=== PATIENT | female | born 1945 | race Caucasian/White ===

== ENCOUNTER → 2018-11-10 11:44 | Outpatient (CLI) | payer OTHER, SELFPAY ==
--- NOTE | 2018-11-10 | DI.MRI.S_ITS ---
PROCEDURE: MR KNEE LT WO CON INDICATIONS: UNILATERAL PRIMARY OSTEOARTHRITIS OF LEFT KNEE TECHNIQUE: Noncontrast sagittal PD fast spin echo and T2 fast spin echo with fat saturation, sagittal 3-D FLASH with fat saturation; coronal T1 spin echo and PD fast spin echo with fat saturation, and axial PD fast spin echo with fat saturation through the knee. COMPARISON: None. FINDINGS: Image quality: Excellent. Menisci: Lateral meniscus appears intact. Complex tear involving the posterior root, posterior horn and body of the medial meniscus, with partial extrusion. Cruciate ligaments: The anterior and posterior cruciate ligaments appear intact. Medial structures: The medial collateral ligament appears intact. The posterior oblique ligament, semimembranosus tendon insertions, oblique popliteal ligament, and meniscocapsular junction appear intact. Visualized portions of the pes anserinus tendons appear normal. No abnormal bursal fluid. Lateral structures: Age-indeterminate, mild proximal sprain of the lateral collateral ligament. The long and short heads of the biceps femoris tendon appear intact. The popliteus tendon appears normal; the popliteofibular ligament appears intact. The posterosuperior and anteroinferior popliteomeniscal fascicles appear intact. The arcuate and fabellofibular ligaments appear intact, on either side of the lateral inferior geniculate artery. Iliotibial band appears normal. Anterior structures: The quadriceps and patellar tendons appear intact. Patellar alignment is normal. No femoral trochlear dysplasia or ventral trochlear prominence. No edema in the infrapatellar fat pad. Bones and cartilage: No bone marrow contusions or fractures. Within the medial compartment, diffuse partial-thickness loss of femoral and tibial cartilage without focal defect. Partial-thickness loss of the posterior cartilage is seen on axial images, for example image 17 series 6 also noted. Within the lateral compartment, diffuse surface fraying of the femoral and tibial cartilage without focal defect. Within the patellofemoral compartment, partial-thickness loss surface fraying of the cartilage overlying the median patellar ridge and the central femoral trochlea. Joint space: Moderate joint effusion. Small Adam's cyst measuring 3 cm in a cephalocaudad dimension. 5 mm ununited osteophyte versus loose body seen in the anterior intercondylar notch image 30 series 7 IMPRESSION: Complex circumferential tear involving the posterior root, posterior horn and body of medial meniscus with partial extrusion. Tricompartmental joint degeneration. Small Adam's cyst. Moderate joint effusion. Probable 5 mm loose body (versus ununited osteophyte) within the anterior intercondylar notch. Dictated by: Forest Gomes M.D. on 11/10/2018 at 13:54 Approved by: Forest Gomes M.D. on 11/10/2018 at 14:05
== END ==
PROVIDERS: Visit Provider Orthopaedic Surgery
DX: S83.232A Complex tear of medial meniscus, current injury, left knee, initial encounter (principal); M17.12 Unilateral primary osteoarthritis, left knee; M71.22 Synovial cyst of popliteal space [Baker], left knee; M25.462 Effusion, left knee
CPT/HCPCS: 73721

== ENCOUNTER 2019-04-07 08:28 | Inpatient (IN) | payer OTHER, SELFPAY ==
[2019-03-25 12:48] VITALS: BMI 36.6
[2019-04-07] VITALS (17 sets, daily range): BP systolic 86–148; BP diastolic 52–88; PULSE 65–86; RESP 7–18; TEMP 36.1–36.8; O2SAT 85–100; BMI 36.6
--- NOTE | 2019-04-07 06:00 | DI.RAD.S_ITS ---
PROCEDURE: XR KNEE LT 1TO2V INDICATIONS: prosthesis placement TECHNIQUE: 2 views of the knee acquired. COMPARISON: [facility] [place], CR, XR KNEE ARTHRITIC SERIES LT, 12/22/2018, 13:18. FINDINGS: Bones: Patient is status post knee joint arthroplasty. Hardware components are in expected positions with near-anatomic alignment. Visualized bony structures are intact. Soft tissues: Overlying postoperative changes are noted including a joint effusion with soft tissue and joint space gas. IMPRESSION: 1. Expected postsurgical changes status post left knee arthroplasty. Dictated by: Arie Huynh M.D. on 04/07/2019 at 15:05 Approved by: Arie Huynh M.D. on 04/07/2019 at 15:06
[2019-04-07] MEDS: LACTATED RINGERS 1,000 ML 42 ML IV ×2 (09:27→12:36)
[2019-04-07] MEDS: ACETAMINOPHEN 325 MG TABLET 975 MG PO ×3 (09:27→20:47)
[2019-04-07] MEDS: PREGABALIN 75 MG CAPSULE PO (09:28)
[2019-04-07] MEDS: VANCOMYCIN 1,000 MG/200 ML FROZ.PIGGY 200 MG IV ×2 (10:02→20:59)
[2019-04-07] MEDS: GENTAMICIN 120 MG in SODIUM CHLORIDE 0.9% 100 ML 103 ML IV (11:07)
--- NOTE | 2019-04-07 11:20 | PM.PREOP ---
Pre-operative Note Interval Note History & Physical reviewed/Exam performed by Physician: Yes Changes to H&P: No
--- NOTE | 2019-04-07 11:23 | P.OP_ITS ---
Operative Date/Time/Diagnoses Date of procedure: 04/07/19 Time of procedure: 11:59 Pre-op diagnosis: left knee OA Post-op diagnosis: same Procedure & Clinicians Procedure: Left total knee arthroplasty Same procedure as scheduled: Yes Indications: The patient has had progressively worsening left knee pain with radiographic changes consistent with arthritis. Non-operative management has failed and the patient has requested total knee replacement. The risks, benefits and alternatives to surgery were discussed with the patient prior to proceeding. Risks discussed included, but were not limited to, failure to relieve pain, stiffness, infection, nerve damage, deep venous thrombosis, pulmonary embolism, stroke, coma, heart attack, permanent paralysis and , as well as the potential need for eventual revision of the prosthetic. Surgeon: Marimar Wong Tool Worker: Gregoria Markham Anesthesia Type: General and Spinal Operative Notes Findings: Severe left knee arthritis, adequate stability Closure Type: primary Specimen(s): none sent Prosthetic devices, grafts, tissues, transplants, or devices: Journey BCS 2 size 5 femur, size 4 tibia, +10 poly, patella 32 by 9mm Applied: drain(s) Estimated Blood Loss (mL): 250 Blood products transfused: none Tourniquet time (min): 79 Procedure in detail: The patient was seen in the pre-operative area, where the patient identified the left knee as the operative site and this was marked with my initials. The patient received pre-operative antibiotics, and was taken to the operating room and placed on the operative table in the supine position. After satisfactory anesthesia, a multimedia services manager out was performed. The left leg was encircled with a tourniquet about the proximal thigh, and the leg was prepared from the toes to the tourniquet with ChloroPrep in the usual fashion and draped through sterile drapes. The leg was elevated and exsanguinated with Eschmark bandage and the tourniquet inflated to [250] mmHg pressure. The knee was approached through an approximately 18 cm incision centered over the patella and carried into the knee through a medial parapatellar arthrotomy. A portion of the medial and lateral meniscus was resected. Soft tissue was carefully mobilized around the patella the patella was measured with a caliper. Bone was resected from the patella and the patellar height was reconstituted with up an appropriate sized patellar component. A cover was then placed on the patella. A small amount of additional medial and lateral meniscus was resected. The visionare guide fit well to the distal femur. It looked like an appropriate distal femoral cut and the cut was made without difficulty. The rotation was assessed and the appropriate size femoral guide was placed on the distal femur and finishing cuts were made. There was no evidence of notching. There was some popliteal tendon fraying. The anterior, posterior and chamfer cuts were then made. The posterior osteophytes and soft tissues were then removed. The posterior capsule was injected with part of a mixture of 60 ml 0.25% Marcaine mixed with 20 ml Exparel for post operative pain control. The remainder of this mixture was injected into the capsule and subcutaneous tissues during cement curing. The tibia was prepared and the visionaire guide fit well to the distal tibia. The rotation was assessed. The patient was placed in extension residual medial and lateral meniscus as well as any residual bone was carefully resected. [No] additional tibia was resected. Hemostasis was achieved especially posteriorly. Additional local was injected into the posterior capsule. The extension gap was assessed and additional releases for gap balancing were performed as necessary. It was checked with the gap pediatric critical care nurse. The femoral component was trial was placed and the notch was finished. Trial tibial and femoral components were then placed and the knee placed through a range of motion. Range of motion was [0-130], with good stability throughout the range. The trials were then removed, and the tibia was finished. The bone was prepared with pulsatile lavage, and dried with a sponge. Cement was applied and the final prosthetics placed. Excess cement was removed during and after cement curing. A brief Betadine soak was performed. After confirming there was no extruded cement posteriorly, the final tibial insert was placed. The knee was copiously irrigated and the tourniquet deflated. Hemostasis was obtained with the Bovie. A drain was placed and brought out superolaterally. The capsule was closed with interrupted Vicryl suture. The subcutaneous layer was closed with barbed sutures, and the skin with a running 3-0 V-Lock suture and Surgical glue. An Aquacel Ag dressing was applied and the patient was taken to recovery having tolerated the procedure well. Complications: none Condition: stable Disposition: Acute Care Plan for aftercare: The patient will be maintained on a standard total knee replacement protocol with weight bearing as tolerated. The patient will receive Lovenox and sequential compression devices for DVT prophylaxis. The patient will be discharged home when safe for the home environment.
--- NOTE | 2019-04-07 12:19 | SUR.OPER ---
Supine on padded OR bed. Pillow under head, arms secured on padded armboards <90 degree abduction. Safety belt across torso. Non-operative leg secured with tape over blanket over lower leg. Operative leg secured in DeMayo/Yadiel positioner. Foam padded brace at thigh of operative leg.
[2019-04-07] MEDS: BUPIVACAINE 0.25% W/ EPI 30 ML VIAL 60 ML INJ (12:34)
[2019-04-07] MEDS: TRANEXAMIC ACID 1,000 MG VIAL 1000 MG INJ ×2 (12:35→13:29)
[2019-04-07] MEDS: BUPIVACAINE LIPOSOME 266 MG/20 ML VIAL INJ (12:35)
[2019-04-07] MEDS: HYDROMORPHONE 2 MG INJ 0.5 MG IV ×2 (14:53→15:09)
[2019-04-07] MEDS: LACTATED RINGERS 1,000 ML 125 ML IV (15:50)
[2019-04-07] MEDS: PARoxetine 10 MG TABLET 30 MG PO (16:41)
[2019-04-07] MEDS: OXYCODONE IR 5 MG TABLET PO ×2 (18:31→21:00)
[2019-04-07] MEDS: PANTOPRAZOLE 40 MG TABLET PO (20:47)
[2019-04-07] MEDS: FLUTICASONE 120 SPRAY/16 GM SPRAY.SUSP NASAL (20:47)
[2019-04-07] MEDS: clonazePAM 0.5 MG TABLET 2 MG PO (20:47)
[2019-04-07] MEDS: DOCUSATE 100 MG CAPSULE PO (20:47)
--- NOTE | 2019-04-07 23:31 | PC.NURSE ---
1530- Pt arrived to room 222 from PACU via bed. A/O x3, 95% 1.5L nc, LS clear denies SOB, reports Hx Asthma. Left knee aquacell/tom wrap CDI, HV site tegaderm CDI, 180mL output this shift. 1PA FWW BSC to vooid a total of 1900mL clear yellow urine this shift plus one saturated claribel pad. BT+ denies nausea, tolerated reg dinner. R wrist LR @ 125 + Vanco. calf SCD's on. Bed alarm on for safety.
[2019-04-08] MEDS: LACTATED RINGERS 1,000 ML 125 ML IV (01:45)
[2019-04-08] MEDS: OXYCODONE IR 5 MG TABLET PO ×5 (04:01→22:39)
[2019-04-08 04:10] VITALS: BP 120/67; PULSE 72; RESP 18; TEMP 36.7; O2SAT 97
[2019-04-08 05:45] LABS: Hematocrit 36.9 % (36-46); Hemoglobin 12.3 g/dL (12.0-16.0)
[2019-04-08] MEDS: PANTOPRAZOLE 40 MG TABLET PO ×2 (06:08→20:01)
[2019-04-08 08:23] VITALS: BP 109/64; PULSE 71; RESP 18; TEMP 36.4; O2SAT 93
[2019-04-08] MEDS: ACETAMINOPHEN 325 MG TABLET 975 MG PO ×3 (08:31→20:01)
[2019-04-08] MEDS: ENOXAPARIN 40 MG/0.4 ML SYRINGE SUBCUT (08:34)
[2019-04-08] MEDS: DOCUSATE 100 MG CAPSULE PO ×2 (08:34→20:02)
[2019-04-08] MEDS: VENLAFAXINE ER 75 MG CAP 150 MG PO (08:35)
[2019-04-08] MEDS: FLUTICASONE 120 SPRAY/16 GM SPRAY.SUSP NASAL (08:36)
--- NOTE | 2019-04-08 08:51 | PM.PNPO.1 ---
Subjective Date Patient Seen: 04/08/19 Time Patient Seen: 08:51 Interval history: Patient's pain is moderate to severe. Denies fever chills. No nausea vomiting. She was able to use the bedside commode. Has not yet worked with physical therapy. Exam Vital Signs (past 8 hours): - 04/08/19 04:10 04/08/19 08:23 Temperature 98.1 F 97.6 F Pulse Rate 72 71 Respiratory Rate 18 18 Blood Pressure 120/67 109/64 Pulse Oximetry 97 93 Oxygen Delivery Method Nasal Cannula Oxygen Flow Rate 1 Narrative Exam Narrative: 73-year-old female resting comfortably in bed in no apparent distress. Left knee dressing is clean, dry and intact. Hemovac is in place. Motor functions intact distally. Sensation grossly intact to light touch. Left leg is warm and dry. Objective Labs Result Diagrams: 04/08/19 05:21 Labs: Laboratory Results - last 24 hr 04/08/19 05:21 Hgb 12.3 Hct 36.9 Assessment & Plan Post-op Postoperative Procedures Operation Date: 04/07/19 10:45 Actual Procedures Side Surgeon p Total Knee Arthroplasty Left Marimar Wong MD Patient progressing as expected. Continue work on pain control today. Mobilize with physical therapy. Weightbearing as tolerated. Likely DC home tomorrow.
--- NOTE | 2019-04-08 09:20 | CM.DANOTE ---
DCP: Case received, EMR reviewed and met with patient. Introduced self and role. History and information obtained from patient regarding her baseline health and functions. DCP template assessment completed with information currently available. Patient is a 73 year old female who admitted yesterday morning to the care of the surgical team. Payer: confirmed: [employer]. Patient came to hospital for surgical procedure. She had L. total knee arthroplasty. Patient has history of osteoarthritis. Met with her in her room. Alert and oriented, and in her bed. Confirmed that she resides in [facility] with her , Darryn. She is originally from [place], [place]. She has not yet been up with physical therapy. Patient stated that she uses a cane at home. Stated that her knee has given out at times, resulting in falling. She stated, otherwise, she is pretty independent at home, and only drives for short distances. During conversation with patient, she was having some difficulties getting comfortable. She voiced concerns about having to keep her knee straight, and sitting in the car. P: DCP to follow closely. Will collaborate with physical therapy team to see if she is able to return home with no barriers, or if she will need more assistance. Caity Salazar RN/Air Control/Anti Air Warfare Officer
--- NOTE | 2019-04-08 10:04 | PC.NURSE ---
Pt is particular with care but has allowed staff to do the care with need. She is obsessive with cleanliness and wants all staff to wash their hands numerous times. Which staff has been doing. She was groggy initially when waking up. Ate breakfast. Meds given along with 1 oxycodone which has been effective for pain control. Pt has been getting up with 1 PA to the commode and doing decent. L.knee dressing cdi with aquacel and tom wrap. She denies any numbness or tingling to extremity. Pt is resting comfortably and states that she wants to nap because the iv maching kept her up.
--- NOTE | 2019-04-08 10:20 | PT.IIE ---
Current Diagnoses Unilateral primary osteoarthritis, left knee (04/07/19) Surgery Performed Operation Date: 04/07/19 10:45 Actual Procedures p Total Knee Arthroplasty(Left) - Marimar Wong MD Surgical History (Last Updated 03/25/19 @ 13:21 by Teresita Moore, RN) History of 2 sections (Acute) History of esophagogastroduodenoscopy (EGD) (Acute) History of lumbar laminectomy (Acute ~1969) Hx of appendectomy (Acute) Hx of sinus surgery (Acute) Hx of tonsillectomy (Acute) Hx of tubal ligation (Acute) Medical History (Last Updated 03/25/19 @ 13:21 by Teresita Moore RN) Anxiety (Acute) Arthritis (Acute) Asthma (Acute) Breast cancer, left (Acute ~2010) Bronchitis (Acute) Depression (Acute) GERD (gastroesophageal reflux disease) (Acute) Ganglion cyst of finger (Acute) Hearing impaired (Acute) Left leg swelling (Acute) Osteoarthritis (Acute) Pneumonia (Acute) Pre-diabetes (Acute) [place] teeth removed (Acute) Physical Therapy Inpatient Evaluation/Re-Eval M1 PT/OT-IP Prior Functional Status Start: 04/08/19 12:10 Freq: NEEDED Status: Active Protocol: Document 04/08/19 10:20 AB (Rec: 04/08/19 12:26 AB [id number]) Medical Review Prior Functional Status Medical History Reviewed Yes Communication able to make needs known Mobility and Gait pt stated that she is modified indepedent with all mobilities and ambulation using FWW but occasionally furniture cruises to ambulate in her house Social History Household Members spouse Living Arrangements House Number of Floors (Floors) One Floor Number of Stairs To Enter/Railing? 3 steps to enter with bilateral wide rails and can only hold on to one rail at a time; stated that she uses a cane and PHOTO EDITOR for stair climbing Home Environment Standard Height Toilet Walk in Shower Built-In Shower Seat Home Equipment Front Wheel Walker Straight Cane Hand Held Shower Grab Bars Near Toilet M2 PT-IP Current Condition Start: 04/08/19 12:10 Freq: NEEDED Status: Active Protocol: Document 04/08/19 10:20 AB (Rec: 04/08/19 12:26 AB [id number]) Physical Therapy Current Condition Current Condition Evaluation Date 04/08/19 Treatment Diagnosis s/P L TKA; difficulty in walking Onset Date 04/07/19 Weight Bearing Status Weight Bearing Status Weight Bear as Tolerated M3 PT-IP Subjective Start: 04/08/19 12:10 Freq: NEEDED Status: Active Protocol: Document 04/08/19 10:20 AB (Rec: 04/08/19 12:26 AB [id number]) Subjective Physical Therapy Visit Type Type Initial Evaluation Visit Start Time 10:20 Visit Stop Time 10:53 Total Visit Minutes 33 Number of QLIKVIEW DEVELOPER Visits 0 Physical Therapy Visit Comments Patient Comments pt agreeable to do PT; requested to use the toilet Therapy Pain Assessment Pain When Pain Assessed At Rest Pain Present Pain Present Pain Reported Location Left Knee Intensity 4 Scale Used Numeric (1 - 10) Pain Management Techniques Apply Cold Re-positioning Timing of Activity with Medications M4 PT-IP Mobility and Gait Start: 04/08/19 12:10 Freq: NEEDED Status: Active Protocol: Document 04/08/19 10:20 AB (Rec: 04/08/19 12:26 [id number]) PT-Bed Mobility Assessment Supine to Sit Supine to Sit Standby Assistance Scooting Scooting to Edge of Bed Standby Assistance PT-Transfer Assessment Sit to and From Stand Sit to and from Stand Contact Guard Assistance 1 Person Assistance Use of Upper Extremities Equipment Transfer Assistive Device Gait Belt Front Wheeled Walker Orthotic/Prosthetic Devices or Brace: No Transfers Transfer Destination Toilet Transfer Technique pt ambulated using FWW Transfer Ability Level of Assist Contact Guard Assistance 1 Person Assistance Use of Upper Extremities Comments Mobility Comments pt ambulated to the toilet using FWW ~ 12 ft CGA and cues for techniques and safety. pt was able to maintain standing using FWW for support CGA while managing her brief. pt ambulated from the toilet towards the sink ~ 12 ft using FWW CGA and was able to maintain standing using FWW for support and leaning against the counter CGA while completing handwashing. pt agreed to do more ambulation. Gait Assessment Gait Gait Assistance Required: Contact Guard Assist Distance (Feet) 60 Able to Maintain Weight Bearing Status Yes During Gait Assistive Devices Assistive Device Gait Belt Front Wheeled Walker Orthotic/Prosthetic Devices or Brace: No Gait Deviations General Gait Pattern Antalgic Decreased Stride Length Decreased Feet Clearance Factors Limiting Gait Function Factors Limiting Gait Function Decreased Activity Tolerance Decreased Strength Limited Range of Motion Pain Poor Balance Poor Safety Awareness PT-Balance Assessment Sitting Balance and Reactions Static Sitting Balance Ability Good Dynamic Sitting Balance Ability Good Standing Balance and Reactions Static Standing Balance Ability Fair Dynamic Standing Balance Ability Fair Device Used FWW M5 PT-IP Objective Assessments Start: 04/08/19 12:10 Freq: NEEDED Status: Active Protocol: Document 04/08/19 10:20 AB (Rec: 04/08/19 12:26 AB [id number]) Orientation Orientation/Cognition Level of Alertness Alert Orientation Name Place Situation Safety Awareness Decreased Safety Awareness Gross Range of Motion Lower Extremity ROM Assessment Right Impaired Impairments R knee flexion: ~ 90 deg R knee extension: lacking ~ 5 deg to neurtral Strength Lower Extremity Strength Assessment Left Impaired Knee 4-/5 Coordination Assessment Gross Coordination Gross Coordination WNL Muscle Tone Muscle Tone WNL Yes M6 PT-IP Treatment Start: 04/08/19 12:10 Freq: NEEDED Status: Active Protocol: Document 04/08/19 10:20 AB (Rec: 04/08/19 12:26 AB [id number]) Physical Therapy Treatment Exercises Exercises Heel Slides Education Education Provided Precautions Weight Bearing Status Post-Op Packet Safety M7 PT-IP Assessment and Plan Start: 04/08/19 12:10 Freq: NEEDED Status: Active Protocol: Document 04/08/19 10:20 AB (Rec: 04/08/19 12:26 AB [id number]) PT Summary Assessment and Plan Potential Rehabilitation Potential Good Status of Condition at Evaluation Stable Summary Impairments Pain ROM Strength Balance Coordination Sensation Tone Cognition Bed Mobility Transfers Gait Activity Tolerance Assessment Summary pt requiring one person assist with mobility and will have her spouse assist her at home. stated that her friend, who is also a caregiver can assist her as well if needed. pt stated that she is set up for outpt PT. Goals Bed Mobility Goal Independent Transfer Goal Independent Front Wheeled Walker Gait Goal Independent Front Wheel Walker Gait Distance 200 Other Goals up/down 3 steps 1 rail/SPC SBA Days to Meet Goals 5 Frequency of Treatment Frequency Of Treatment Twice a Day Treatment Plan Physical Therapy Treatment Plan Bed Mobility Training Transfer Training Gait Training Therapeutic Exercise Balance Retraining Post Op Education Discharge Planning Hot or Cold Pack Neuromuscular Re-ed Coordination Retraining Manual Therapy Other Recommendations and Next Treatment ambulation, stair climbing Focus training, caregiver training if appropriate Recommendations To Nursing Amount of Assist Needed 1 Person Assist Discharge Recommendations PT Discharge Recommendations Home with Assistance Outpatient PT
[2019-04-08 11:40] VITALS: PULSE 76; RESP 18; TEMP 36.9; O2SAT 97
--- NOTE | 2019-04-08 12:26 | PC.NURSE ---
Addendum entered by Forest Bassett R.N. 04/08/19 15:27: 1330- Pt c/o pain to l knee. Medicated with PRN oxycodone. Noted O2 sat 84% on RA. Pt denies shortness of breath and RR are even/unlabored rate 15. Applied O2 at 1L NC. Will monitor. Original Note: Rec'd pt sitting up to chair finishing up physical therapy session. Physical therapist reports pt with decreased O2 sat around 90% on RA at which time she placed a NC at 2LPM. Pt is seen sitting up to chair with mildly labored RR 22 and O2 sat 97%. Reassessed pt at noon and found pt to have removed nasal cannula. Checked O2 sat at 97% on RA. Leaving O2 off for now. Pt used IS x5 breaths with fair breath holding ability. Reports hx of asthma but denies symptoms of exacerbation at this time. Lungs are CTAB. Educated pt to use IS 10 xhr while awake. L knee has CDI aquacell dsg with tom wrap cover. Hemovac is compressed with sang drainage noted. Scant sang drainage on proximal portion of tom wrap and claribel drain site. Pt states previously noted left upper leg tingling is resolving and barely noticeable. Call light in reach and safety measure reinforced. Pt verbalizes understanding and agrees to use call light for any needs and will wait for assistance prior to getting OOB.
[2019-04-08 15:59] VITALS: BP 134/65; PULSE 79; RESP 18; TEMP 36.7; O2SAT 95
[2019-04-08] MEDS: PARoxetine 10 MG TABLET 30 MG PO (17:19)
--- NOTE | 2019-04-08 17:19 | PT.IPTN ---
Current Diagnoses Unilateral primary osteoarthritis, left knee (04/07/19) Surgery Performed Operation Date: 04/07/19 10:45 Actual Procedures p Total Knee Arthroplasty(Left) - Marimar Wong MD Physical Therapy Treatment Note M2 PT-IP Current Condition Start: 04/08/19 12:10 Freq: NEEDED Status: Active Protocol: Document 04/08/19 10:20 AB (Rec: 04/08/19 12:26 AB [id number]) Physical Therapy Current Condition Current Condition Evaluation Date 04/08/19 Treatment Diagnosis s/P L TKA; difficulty in walking Onset Date 04/07/19 Weight Bearing Status Weight Bearing Status Weight Bear as Tolerated M3 PT-IP Subjective Start: 04/08/19 12:10 Freq: NEEDED Status: Active Protocol: Document 04/08/19 16:49 LJ (Rec: 04/08/19 17:19 LJ [id number]) Subjective Physical Therapy Visit Type Type Treatment Note Visit Start Time 14:49 Visit Stop Time 17:13 Total Visit Minutes 24 Notes Pt just returned to chair after going to the bathroom. Willing to do exercises in the chair. Waiting for pain meds and not wanting to get up again Therapy Pain Assessment Pain When Pain Assessed At Rest Pain Present Pain Present Pain Reported M4 PT-IP Mobility and Gait Start: 04/08/19 12:10 Freq: NEEDED Status: Active Protocol: Document 04/08/19 10:20 AB (Rec: 04/08/19 12:26 AB [id number]) PT-Bed Mobility Assessment Supine to Sit Supine to Sit Standby Assistance Scooting Scooting to Edge of Bed Standby Assistance PT-Transfer Assessment Sit to and From Stand Sit to and from Stand Contact Guard Assistance 1 Person Assistance Use of Upper Extremities Equipment Transfer Assistive Device Gait Belt Front Wheeled Walker Orthotic/Prosthetic Devices or Brace: No Transfers Transfer Destination Toilet Transfer Technique pt ambulated using FWW Transfer Ability Level of Assist Contact Guard Assistance 1 Person Assistance Use of Upper Extremities Comments Mobility Comments pt ambulated to the toilet using FWW ~ 12 ft CGA and cues for techniques and safety. pt was able to maintain standing using FWW for support CGA while managing her brief. pt ambulated from the toilet towards the sink ~ 12 ft using FWW CGA and was able to maintain standing using FWW for support and leaning against the counter CGA while completing handwashing. pt agreed to do more ambulation. Gait Assessment Gait Gait Assistance Required: Contact Guard Assist Distance (Feet) 60 Able to Maintain Weight Bearing Status Yes During Gait Assistive Devices Assistive Device Gait Belt Front Wheeled Walker Orthotic/Prosthetic Devices or Brace: No Gait Deviations General Gait Pattern Antalgic Decreased Stride Length Decreased Feet Clearance Factors Limiting Gait Function Factors Limiting Gait Function Decreased Activity Tolerance Decreased Strength Limited Range of Motion Pain Poor Balance Poor Safety Awareness PT-Balance Assessment Sitting Balance and Reactions Static Sitting Balance Ability Good Dynamic Sitting Balance Ability Good Standing Balance and Reactions Static Standing Balance Ability Fair Dynamic Standing Balance Ability Fair Device Used FWW M5 PT-IP Objective Assessments Start: 04/08/19 12:10 Freq: NEEDED Status: Active Protocol: Document 04/08/19 10:20 AB (Rec: 04/08/19 12:26 AB [id number]) Orientation Orientation/Cognition Level of Alertness Alert Orientation Name Place Situation Safety Awareness Decreased Safety Awareness Gross Range of Motion Lower Extremity ROM Assessment Right Impaired Impairments R knee flexion: ~ 90 deg R knee extension: lacking ~ 5 deg to neurtral Strength Lower Extremity Strength Assessment Left Impaired Knee 4-/5 Coordination Assessment Gross Coordination Gross Coordination WNL Muscle Tone Muscle Tone WNL Yes M6 PT-IP Treatment Start: 04/08/19 12:10 Freq: NEEDED Status: Active Protocol: Document 04/08/19 16:49 MERARI (Rec: 04/08/19 17:19 LJ [id number]) Physical Therapy Treatment Exercises Exercises Ankle Pumps Gluteal Sets Quad Sets Education Education Provided Safety Other Treatments Other Treatment Performed seated abdominal crunches pelvic tilts M7 PT-IP Assessment and Plan Start: 04/08/19 12:10 Freq: NEEDED Status: Active Protocol: Document 04/08/19 16:49 MERARI (Rec: 04/08/19 17:19 LJ [id number]) PT Summary Assessment and Plan Potential Rehabilitation Potential Good Status of Condition at Evaluation Stable Summary Impairments Pain ROM Strength Balance Coordination Sensation Tone Cognition Bed Mobility Transfers Gait Activity Tolerance Assessment Summary Pt with increased pain waiting for medications to be administered in 15 min. Performed seated exercises for LE and abdominals. Pt aware that she needs to trial stairs prior to d/c home tomorrow. Goals Bed Mobility Goal Independent Transfer Goal Independent Front Wheeled Walker Gait Goal Independent Front Wheel Walker Gait Distance 200 Other Goals up/down 3 steps 1 rail/SPC SBA Days to Meet Goals 5 Frequency of Treatment Frequency Of Treatment Twice a Day Treatment Plan Physical Therapy Treatment Plan Bed Mobility Training Transfer Training Gait Training Therapeutic Exercise Balance Retraining Post Op Education Discharge Planning Hot or Cold Pack Neuromuscular Re-ed Coordination Retraining Manual Therapy Other Recommendations and Next Treatment ambulation, stair climbing Focus training, caregiver training if appropriate Recommendations To Nursing Amount of Assist Needed 1 Person Assist Discharge Recommendations PT Discharge Recommendations Home with Assistance Outpatient PT
[2019-04-08 19:56] VITALS: BP 135/59; PULSE 77; RESP 20; TEMP 36.7
[2019-04-08] MEDS: clonazePAM 0.5 MG TABLET 2 MG PO (20:02)
[2019-04-08 23:15] VITALS: BP 143/61; PULSE 76; RESP 18; TEMP 36.9; O2SAT 94
[2019-04-09] MEDS: OXYCODONE IR 5 MG TABLET PO ×2 (02:14→05:22)
[2019-04-09 03:55] VITALS: BP 147/57; PULSE 76; RESP 18; TEMP 37; O2SAT 93
[2019-04-09] MEDS: PANTOPRAZOLE 40 MG TABLET PO (05:23)
[2019-04-09 09:00] VITALS: BP 147/77; PULSE 80; RESP 16; TEMP 36.3; O2SAT 93
[2019-04-09] MEDS: OXYCODONE IR 10 MG TABLET PO (09:26)
[2019-04-09 10:05] VITALS: O2SAT 92
[2019-04-09 10:06] VITALS: O2SAT 89
--- NOTE | 2019-04-09 10:44 | P.PN_ITS ---
Subjective Date Patient Seen: 04/09/19 Time Patient Seen: 08:42 Interval history: POD 2 s/p L TKA with Dr. Wong. Patient has significant pain control issues. She has been very slow to mobilize. She has not been mobilizing in the [place] yet. Patient has an allergy to ASA, and will have Jens enox for DVT prophylaxis. She is voiding without difficulty. Hemovac drain 80 cc last night. Exam Vital Signs (past 8 hours): - 04/09/19 03:55 04/09/19 09:00 04/09/19 10:05 Temperature 98.6 F 97.3 F L Pulse Rate 76 80 Respiratory Rate 18 16 Blood Pressure 147/57 H 147/77 H Pulse Oximetry 93 93 92 04/09/19 10:06 Temperature Pulse Rate Respiratory Rate Blood Pressure Pulse Oximetry 89 L Oxygen Delivery Method Room Air Oxygen Flow Rate 1 Narrative Exam Narrative: Patient lying in bed in no acute distress. She is alert and oriented x3. Dressing on left knee is CDI. Tk wrap in place. Hemovac drain still in. Calves are soft, compressible, nontender bilaterally. Pulses are symmetrical. She is able to actively dorsiflex plantar flex. Objective Labs Result Diagrams: 04/08/19 05:21 Assessment & Plan Post-op (1) S/P total knee arthroplasty: Postoperative Procedures Operation Date: 04/07/19 10:45 Actual Procedures Side Surgeon p Total Knee Arthroplasty Left Marimar Melanie Wong MD Patient will continue to mobilize with physical therapy today. Will increase patient's oxycodone to 10 mg. She has the option of also trying Vistaril. Continue Lovenox for DVT prophylaxis. Patient will discharge home once mobilizing safely, and pain adequately controlled either tonight or tomorrow morning.
--- NOTE | 2019-04-09 11:00 | PT.IPTN ---
Current Diagnoses Unilateral primary osteoarthritis, left knee (04/07/19) Presence of unspecified artificial knee joint (04/07/19) Surgery Performed Operation Date: 04/07/19 10:45 Actual Procedures p Total Knee Arthroplasty(Left) - Marimar Wong MD Physical Therapy Treatment Note M2 PT-IP Current Condition Start: 04/08/19 12:10 Freq: NEEDED Status: Active Protocol: Document 04/08/19 10:20 AB (Rec: 04/08/19 12:26 AB [id number]) Physical Therapy Current Condition Current Condition Evaluation Date 04/08/19 Treatment Diagnosis s/P L TKA; difficulty in walking Onset Date 04/07/19 Weight Bearing Status Weight Bearing Status Weight Bear as Tolerated M3 PT-IP Subjective Start: 04/08/19 12:10 Freq: NEEDED Status: Active Protocol: Document 04/09/19 11:00 GGD (Rec: 04/09/19 12:11 GGD [id number]) Subjective Physical Therapy Visit Type Type Treatment Note Visit Start Time 10:20 Visit Stop Time 11:00 Total Visit Minutes 40 Number of ANTENNA RIGGER Visits 2 Physical Therapy Visit Comments Patient Comments Pt want's to D/C home. Therapy Pain Assessment Pain When Pain Assessed At Rest Pain Present Pain Present Pain Reported Location Left Knee Intensity 4 Scale Used Numeric (1 - 10) Pain Management Techniques Apply Cold Re-positioning Timing of Activity with Medications M4 PT-IP Mobility and Gait Start: 04/08/19 12:10 Freq: NEEDED Status: Active Protocol: Document 04/09/19 11:00 GGD (Rec: 04/09/19 12:11 GGD [id number]) PT-Bed Mobility Assessment Supine to Sit Supine to Sit Standby Assistance Sit to Supine Sit to Supine Standby Assistance Scooting Scooting to Edge of Bed Standby Assistance PT-Transfer Assessment Sit to and From Stand Sit to and from Stand Standby Assistance 1 Person Assistance Use of Upper Extremities Equipment Transfer Assistive Device Gait Belt Front Wheeled Walker Orthotic/Prosthetic Devices or Brace: No Transfers Transfer Destination Bed Toilet Transfer Ability Level of Assist Contact Guard Assistance 1 Person Assistance Use of Upper Extremities Gait Assessment Gait Gait Assistance Required: Contact Guard Assist Distance (Feet) 100 Able to Maintain Weight Bearing Status Yes During Gait Assistive Devices Assistive Device Gait Belt Front Wheeled Walker Orthotic/Prosthetic Devices or Brace: No Gait Deviations General Gait Pattern Antalgic Decreased Stride Length Decreased Feet Clearance Factors Limiting Gait Function Factors Limiting Gait Function Decreased Activity Tolerance Decreased Strength Limited Range of Motion Pain Poor Balance Poor Safety Awareness Stair Climbing Assessment Evaluation Level of Assist On Stairs Contact Guard Assistance Devices Stair Climbing Assistive Devices Right Railing Technique/Endurance Stair Climbing Direction Ascend and Descend Stair Climbing Technique Step to Step Number of Steps Climbed 3 Query Text: Stair Climbing Set # Repetitions (reps) 1 M5 PT-IP Objective Assessments Start: 04/08/19 12:10 Freq: NEEDED Status: Active Protocol: Document 04/08/19 10:20 AB (Rec: 04/08/19 12:26 AB [id number]) Orientation Orientation/Cognition Level of Alertness Alert Orientation Name Place Situation Safety Awareness Decreased Safety Awareness Gross Range of Motion Lower Extremity ROM Assessment Right Impaired Impairments R knee flexion: ~ 90 deg R knee extension: lacking ~ 5 deg to neurtral Strength Lower Extremity Strength Assessment Left Impaired Knee 4-/5 Coordination Assessment Gross Coordination Gross Coordination WNL Muscle Tone Muscle Tone WNL Yes M6 PT-IP Treatment Start: 04/08/19 12:10 Freq: NEEDED Status: Active Protocol: Document 04/09/19 11:00 GGD (Rec: 04/09/19 12:11 GGD [id number]) Physical Therapy Treatment Exercises Exercises Ankle Pumps Quad Sets Heel Slides Straight Leg Raises Short Arc Quads Seated Knee Flexion/Extension Education Education Provided Safety M7 PT-IP Assessment and Plan Start: 04/08/19 12:10 Freq: NEEDED Status: Active Protocol: Document 04/09/19 11:00 GGD (Rec: 04/09/19 12:11 GGD [id number]) PT Summary Assessment and Plan Summary Assessment Summary Pt improving with mobility. She was able to progress gait with FWW. She was safe and stable with stair mobility. Pt safe for home D/C when medically stable. Frequency of Treatment Frequency Of Treatment Twice a Day Treatment Plan Physical Therapy Treatment Plan Bed Mobility Training Transfer Training Gait Training Therapeutic Exercise Balance Retraining Post Op Education Discharge Planning Hot or Cold Pack Neuromuscular Re-ed Coordination Retraining Manual Therapy Recommendations To Nursing Amount of Assist Needed 1 Person Assist Discharge Recommendations PT Discharge Recommendations Home with Assistance Outpatient PT
[2019-04-09] MEDS: ACETAMINOPHEN 325 MG TABLET 975 MG PO (11:46)
[2019-04-09] MEDS: DOCUSATE 100 MG CAPSULE PO (11:47)
[2019-04-09] MEDS: ENOXAPARIN 40 MG/0.4 ML SYRINGE SUBCUT (11:47)
[2019-04-09] MEDS: VENLAFAXINE ER 75 MG CAP 150 MG PO (11:48)
--- NOTE | 2019-04-09 12:15 | PC.NURSE ---
Discharge PIV and hemovac removed prior to d/c. HV site continued to leak serosang output for about 20 min after removal, drainage stopped and new dressing applied. instructed pt and on how to change dressing if needed. Educated about aquacel dressing. Tk wrap was too tight and causing edema in calf, this was removed. D/c instructions provided to pt and . Aware to f/u with MD for post op apts as well as for any additional questions or concerns. pt left with all her belongings including home meds. Pt is [facility] [facility] and has all her medications at home. left in w/c with and student RN.
--- NOTE | 2019-04-18 11:00 | P.DS_ITS ---
History of Present Illness Chief complaint: [id number] Narrative: Please see HPI in chart Discharge Providers Date of admission: 04/07/19 08:28 Discharge Date: 04/09/19 Primary care physician: Deni Del Real MD Consults: 04/07/19 06:00 Consult to Anesthesiology Routine Comment: Consulting Provider: Anesthesiologist Reason for consultation: Regional block for post operative pain control Has provider been notified: Yes 04/07/19 15:37 Consult to Discharge Planning Routine Comment: Consult to Physical Therapy Evaluate & Treat Comment: Physician Instructions: postop TKA protocol Consult to Respiratory Therapy Evaluate & Treat Comment: Physician Instructions: Evaluate and treat Discharge provider: Celi Martinez PA-C Summary Discharge Diagnosis: s/p left total knee arthroplasty Hospital Course: The patient has had progressively worsening left knee pain with radiographic changes consistent with arthritis. Non-operative management has failed and the patient has requested total knee replacement. The risks, benefits and alternatives to surgery were discussed with the patient prior to proceeding. Risks discussed included, but were not limited to, failure to relieve pain, stiffness, infection, nerve damage, deep venous thrombosis, pulmonary embolism, stroke, coma, heart attack, permanent paralysis and , as well as the p otential need for eventual revision of the prosthetic. Patient was taken to the operating room and underwent left total knee arthroplasty with no complications. She initially had significant pain control issues that resolved with increase in oxycodone and vistaril. Patient has an allergy to ASA, and will have Lovenox for DVT prophylaxis. She was able to mobilize with PT safely prior to discharge. She is voiding without difficulty. Hemovac was removed prior to discharge. Status at Discharge Cognitive/behavioral status at discharge: oriented Functional status at discharge: uses cane/walker Overall status at discharge: patient is progressing back to baseline Exam Vital Signs (past 8 hours): Oxygen Delivery Method Room Air Oxygen Flow Rate 1 Narrative Exam Narrative: Patient lying in bed in no acute distress. She is alert and oriented x3. Dressing on left knee is CDI. Tk wrap in place. Hemovac drain still in. Calves are soft, compressible, nontender bilaterally. Pulses are symmetrical. She is able to actively dorsiflex plantar flex. Objective Labs Result Diagrams: 04/08/19 05:21 Discharge Plan Discharge Plan Patient Disposition: Home Discharge Med Rec/Prescriptions Prescriptions: New docusate sodium [DOK] 100 mg Capsule 100 mg PO BID Qty: 60 RF: 0 enoxaparin [Lovenox] 40 mg/0.4 mL Syringe 40 mg subcut DAILY Qty: 8 RF: 0 Continued clonazepam 1 mg Tablet 1 - 2 tab PO BEDTIME RF: 0 venlafaxine 150 mg Capsule,Extended Release 24hr 150 mg PO DAILY RF: 0 omeprazole 40 mg Capsule,Delayed Release(Dr/Ec) 40 mg PO BID RF: 0 acetaminophen [Tylenol Arthritis Pain] 650 mg Tablet Extended Release 1,300 mg PO Q8H PRN (Reason: Pain) RF: 0 paroxetine HCl 30 mg Tablet 30 mg PO QPM RF: 0 azelastine 137 mcg (0.1 %) Aerosol,[place] 2 spray INTRANASAL BID RF: 0 fluticasone propionate [Flonase Allergy Relief] 50 mcg/actuation [place],Suspension 2 spray INTRANASAL BID RF: 0 albuterol sulfate [Ventolin HFA] 90 mcg/actuation Hfa Aerosol Inhaler 2 puff INHALATION Q4-6H PRN (Reason: Shortness Of Breath) RF: 0 Discontinued hydrocodone-acetaminophen 5-325 mg Tablet 0.5 - 1 tab PO Q4-6H PRN (Reason: Pain) RF: 0 Follow up/Referrals: Deni Del Real MD [Primary Care Provider] - (Follow up regarding sleep apnea) Marimar Wong MD [Physician] - Provider Discharge Instructions Diet: Diet as Tolerated Cold/Heat Therapy: as needed Skin/Wound/Dressing Care Report to your healthcare provider any signs of infection, such as:: chills, fever and increased pain Dressing: Leave in place Visit Report/Discharge Packet Instructions: DI for Knee Replacement, Enoxaparin Injection, How to Give a Subcutaneous Injection With a Pre-filled Syringe Discharge Data Primary Care Provider: Deni Del Real Attending Provider: Marimar Wong Admit Date/Time: 04/07/19 08:28 Discharges patient from system. Discharge Date/Time: 04/09/19 12:15
== END 2019-04-09 12:15 | disposition home or self-care (01) | DRG 470 ==
PROVIDERS: Admitting Provider Orthopaedic Surgery; PCP Family Medicine; Visit Provider Orthopaedic Surgery
PROC: 0SRD0JZ Replacement of Left Knee Joint with Synthetic Substitute, Open Approach (ICD-10-PCS; CPT 27447; principal; 2019-04-07 10:45)
DX: M17.12 Unilateral primary osteoarthritis, left knee (principal); I10 Essential (primary) hypertension; F32.9 Major depressive disorder, single episode, unspecified; E66.9 Obesity, unspecified; J45.909 Unspecified asthma, uncomplicated; Z68.37 Body mass index [BMI] 37.0-37.9, adult; M25.562 Pain in left knee
CPT/HCPCS: 36415; 73560; 85014; 85018; 94760; 97110; 97116; 97161; 97530; C1776; C9290; J1100; J1170; J1650; J2250; J2405; J2704; J3370